=== PATIENT | male | born 1950 | race Caucasian/White ===

== ENCOUNTER 2017-07-03 03:09 | Emergency (ER) | payer MEDICARE ==
[2017-07-03 03:20] VITALS: BP 143/94
[2017-07-03] MEDS ORDERED: HYDROcodone/ACETAMIN 5-325 MG* 1 TAB PO ONE (07:05)
[2017-07-03] MEDS ORDERED: Cyclobenzaprine TAB* 10 MG PO ONE (07:06)
--- NOTE | 2017-07-03 08:25 | RAD ---
HISTORY: Back pain COMPARISONS: None VIEWS: 5 , Frontal, lateral, coned-down lateral sacral, and bilateral oblique views of the lumbar spine. FINDINGS: ALIGNMENT: There is mild dextroscoliotic curvature of the spine. There is straightening of the lumbar lordosis. VERTEBRAL BODIES: The vertebral body heights are normal. The interpedicular distances are normal. There is multilevel anterolateral marginal osteophyte formation. JOINTS: There is diffuse facet osteoarthritic change, most pronounced along the lower lumbar spine INTERVERTEBRAL DISCS: There is diffuse loss of intervertebral disc height. SOFT TISSUE: Unremarkable. OTHER: The pelvis is unremarkable. The lung bases are clear. IMPRESSION: DEGENERATIVE DISC DISEASE AND OSTEOARTHRITIS.
--- NOTE | 2017-07-03 10:04 | ED ---
Devon Leal Thomas, scribed for Shea Quezada MD on 07/03/17 at 0947 . Back Pain - HPI Summary HPI Summary: The pt is a 67 y/o M presenting to the ED c/o sharp left lower back pain that began 9 days ago when he was doing mulch. The pain is described as a tightness, stiffness, and soreness. The pt rates the pain 2/10. The pain is alleviated by movement. The pain is aggravated by nothing. The patient has treated the pain with Alleve TIRE MAKER. Two days ago, the pain worsened and the patient had difficulty standing up and ambulating. The pain now radiates down his LLE below his calf. He saw his PMD who thought that the patient aggravated a tendon in his pelvic bone. He prescribed the patient Naproxen 500mg BID. He reports previous back injuries. Two years ago, he had some sort of imaging on his back. Pt denies bladder or bowel incontinence. He is accompanied by his . PMHx of HTN, HLD, and hypothyroidism. He is on Simvastatin 20mg, Lisinopril 20mg, Synthroid 50mg, and ASA 81. He also has a Hx of kidney stones, although he says his current symptoms does not align with his prior sxs with kidney stones. PSHx of knee repairs and ESWL. FHx of cancer and Parkinsons disease. - History of Current Complaint Chief Complaint: EDBackInjuryPain Stated Complaint: BACK PAIN Time Seen by Provider: 07/03/17 06:28 Hx Obtained From: Patient, Family/Lactation Coordinator - accompanied by his Onset/Duration: Lasting Days - onset of pain 9 days ago, Still Present, Worse Since - worse since two days ago Onset/Duration: Started Days Ago, Atraumatic, Still Present Timing: Constant Back Pain Location: Is Discrete @ - left lower back Severity Currently: Moderate Pain Intensity: 2 Pain Scale Used: 0-10 Numeric Character: Sharp Aggravating Symptom(s): Movement Alleviating Symptom(s): Nothing Associated Signs And Symptoms: Negative: Bladder Incontinence, Bowel Incontinence Related History: Previous Back Injury - Allergies/Home Medications Allergies/Adverse Reactions: Allergies Allergy/AdvReac Type Severity Reaction Status Date / Time No Known Allergies Allergy Verified 02/13/16 08:09 PMH/Surg Hx/FS Hx/Imm Hx Previously Healthy: No Endocrine/Hematology History: Reports: Hx Thyroid Disease Denies: Hx Diabetes Cardiovascular History: Reports: Hx Hypercholesterolemia, Hx Hypertension - ON MEDS Denies: Hx Pacemaker/ICD History: Denies: Hx Renal Disease Sensory History: Denies: Hx Hearing Aid Psychiatric History: Denies: Hx Panic Disorder - Surgical History Surgery Procedure, Year, and Place: ARTHROSCOPIC RIGHT KNEE-REMOVED CYST 1990. KIDNEY STONES REMOVED SEVERAL TIMES. TONSILS CHILD-BROKEN LEG CHILD NO METAL Infectious Disease History: No Infectious Disease History: Denies: Traveled Outside the [place] in Last 30 Days - Family History Known Family History: Positive: Other - [place], parkinson's disease - Social History Lives: With Family Alcohol Use: None Hx Substance Use: No Substance Use Type: Reports: None Smoking Status (MU): Unknown if Ever Smoked Review of Systems Negative: Fever Cardiovascular: Negative Respiratory: Negative Gastrointestinal: Negative Positive: no symptoms reported Positive: Other - Sharp left lower back pain onset 9 days ago Skin: Negative Neurological: Other - NEGATIVE: bladder or bowel incontinence Psychological: Normal All Other Systems Reviewed And Are Negative: Yes Physical Exam Triage Information Reviewed: Yes Vital Signs On Initial Exam: Initial Vitals Temp Pulse Resp BP Pulse Ox 97.2 F 104 20 143/94 98 07/03/17 03:10 07/03/17 03:10 07/03/17 03:10 07/03/17 03:10 07/03/17 03:10 Vital Signs Reviewed: Yes Appearance: Positive: Well-Appearing, Well-Nourished, Pain Distress Skin: Positive: Warm, Skin Color Reflects Adequate Perfusion Head/Face: Positive: Normal Head/Face Inspection Eyes: Positive: Conjunctiva Clear ENT: Positive: Normal ENT inspection Neck: Positive: Supple Respiratory/Lung Sounds: Positive: Clear to Auscultation, Breath Sounds Present , Other - No respiratory distress Cardiovascular: Positive: RRR, Pulses are Symmetrical in both Upper and Lower Extremities, Other - Brisk cap refill. Negative: Murmur Abdomen Description: Positive: Nontender, No Organomegaly, Soft. Negative: CVA Tenderness (R), CVA Tenderness (L), Distended, Guarding, Pulsatile Mass Bowel Sounds: Positive: Present Male Genital Exam: Positive: normal genitalia Musculoskeletal: Positive: Strength/ROM Intact, Other - He is tender in L4, L5 down to the coccyx. Pain is reproducible on the sciatic notch and sacroilium. Neurological: Positive: Sensory/Motor Intact, Alert, Oriented to Person Place, Time, Reflexes Intact, Facial Symmetry, Speech Normal, Other - Able to walk on heels and toes Psychiatric: Positive: Normal Diagnostics - Vital Signs Vital Signs Temp Pulse Resp BP Pulse Ox 07/03/17 08:49 97.9 F 07/03/17 03:10 97.2 F 104 20 143/94 98 - Laboratory Lab Statement: Any lab studies that have been ordered have been reviewed, and results considered in the medical decision making process. - Radiology L-Spine XR Xray Interpretation: No Acute Changes - DDD and OA. ED physician has reviewed this report and agrees. Radiology Interpretation Completed By: Radiologist Re-Evaluation - Re-Evaluation Second Eval Re-Evaluation Time: 08:30 - reports relief of pain. Able to bear weight. Wants to go home. Change: Improved Back Pain Course/Dx - Course Course Of Treatment: High blood pressure noted. Patients medications reviewed this visit. Assessment/Plan: The pt is a 67 y/o M presenting to the ED c/o sharp left lower back pain that began 9 days ago when he was doing mulch. The pain radiates down his LLE below his calf. Patients medication reviewed this visit. Blood pressure noted. In the ED course the patient was given Flexeril and Axson. XR L- Spine shows DDD and OA. ED physician has reviewed this report and agrees. Patient will be discharged home with follow up by PCP. Pt is agreeable with this plan. - Diagnoses Differential Diagnosis/HQI/PQRI: Positive: Arthritis, Herniated Disc, Strain, Sprain Provider Diagnoses: Acute low back pain with left-sided sciatica, Hypertension, poor control Discharge - Discharge Plan Condition: Stable Disposition: HOME Prescriptions: Cyclobenzaprine TAB* [Flexeril 10 MG TAB*] 10 mg PO TID #30 tab HYDROcodone/ACETAMIN 5-325 MG* [Axson 5-325 TAB*] 1 tab PO Q4H PRN #18 tab MDD 6 PRN Reason: Pain Patient Education Materials: Sciatica (ED), Lumbar Radiculopathy (ED) Referrals: Real Villalobos MD [Primary Care Provider] - The documentation as recorded by the Devon freedman Thomas accurately reflects the service I personally performed and the decisions made by , Shea Quezada MD.
== END 2017-07-03 08:49 | disposition home or self-care (01) ==
LOC: ED 03:09
DX: M54.42 Lumbago with sciatica, left side (principal); I10 Essential (primary) hypertension; E07.9 Disorder of thyroid, unspecified; E78.00 Pure hypercholesterolemia, unspecified; M51.36 Other intervertebral disc degeneration, lumbar region; M19.90 Unspecified osteoarthritis, unspecified site
CPT/HCPCS: 72110; 99282; A9270-GY

== ENCOUNTER 2017-07-06 19:21 | Inpatient (IN) | payer MEDICARE ==
--- NOTE | 2017-07-06 21:37 | ED ---
Back Pain - HPI Summary HPI Summary: 67 male presents to ED with complaints of lower left sided back pain that began 2 weeks ago after hurting himself while lifting and doing mulch. Patient states pain hurt worse last Tuesday07/01/17 and seen in ED on Tuesday 07/03. Patient was taking naproxen 500mg BID and additionally given hydrocodone and flexeril when seen on Tuesday. States he has not had any relief and has been crawling around, unable to walk and straighten leg without pain. Comfortable when resting and having leg externally rotated. Worse with weight bearing and walking. States pain starts in left gluteal/low back region and travels down left leg. Described as sharp and shooting at its worst. States "it feels like a rubberband that needs to be stretched but can't". Denies bruising, swelling and obvious deformity. No additional trauma or injury, states when he woke up last Tuesday it just hurt worse when he went to step off bed. Unable to make it to his PCP appointment today due to being unable to move/walk. Denies saddle anesthesia, bladder/bowel incontinence. Does admit to having some weakness of left leg. No abdominal pain, chest pain or trouble breathing. Has HTN, high cholesterol and thyroid disease that he currently takes medication for. Had xrays at last visit tuesday that were unremarkable for acute injury. - History of Current Complaint Chief Complaint: EDBackInjuryPain Stated Complaint: BACK INJURY Time Seen by Provider: 07/06/17 19:36 Hx Obtained From: Patient Onset/Duration: Sudden Onset, Lasting Weeks, Still Present, Worse Since Onset/Duration: Started Weeks Ago, Traumatic Timing: Constant - with weight bearing or straightening of left LE Back Pain Location: Is Discrete @ - left lumbar back /glute down left LE Severity Initially: Moderate Severity Currently: Severe Pain Intensity: 8 Pain Scale Used: 0-10 Numeric Aggravating Symptom(s): Movement, Walking Alleviating Symptom(s): Rest, Position Associated Signs And Symptoms: Positive: Weakness, Pain with Weight Bearing. Negative: Swelling, Redness, Bruising, Numbness, Tingling, Abdominal Pain, Bladder Incontinence, Bowel Incontinence - Risk Factors AAA Risk Factors: Hypertension, Atherosclerosis TAD Risk Factors: Hypertension Cauda Equina Risk Factors: Lower Extremity Weakness - left side Epidural Abscess Risk Factors: Negative - Allergies/Home Medications Allergies/Adverse Reactions: Allergies Allergy/AdvReac Type Severity Reaction Status Date / Time No Known Allergies Allergy Verified 07/06/17 21:33 Home Medications: Home Medications Aspirin [Aspirin 81 MG TAB] 81 mg PO QPM 07/07/17 [History Confirmed 07/07/17] Levothyroxine TAB* [Synthroid TAB*] 50 mcg PO QPM 07/07/17 [History Confirmed ] Lisinopril TAB* [Prinivil TAB*] 20 mg PO DAILY 07/07/17 [History Confirmed 07/07] Simvastatin [Zocor 40 MG (NF)] 20 mg PO QPM 07/07/17 [History Confirmed 07/07/17 ] PMH/Surg Hx/FS Hx/Imm Hx Endocrine/Hematology History: Reports: Hx Thyroid Disease Denies: Hx Diabetes Cardiovascular History: Reports: Hx Hypercholesterolemia, Hx Hypertension - ON MEDS Denies: Hx Pacemaker/ICD History: Denies: Hx Renal Disease Sensory History: Denies: Hx Hearing Aid Psychiatric History: Denies: Hx Panic Disorder - Surgical History Surgery Procedure, Year, and Place: ARTHROSCOPIC RIGHT KNEE-REMOVED CYST 1990. KIDNEY STONES REMOVED SEVERAL TIMES. TONSILS CHILD-BROKEN LEG CHILD NO METAL - Immunization History Immunizations Up to Date: Yes Infectious Disease History: No Infectious Disease History: Denies: Traveled Outside the [place] in Last 30 Days - Family History Known Family History: Positive: Other - [place], parkinson's disease - Social History Alcohol Use: None Hx Substance Use: No Substance Use Type: Reports: None Smoking Status (MU): Unknown if Ever Smoked Review of Systems Constitutional: Negative Cardiovascular: Negative Respiratory: Negative Positive: Arthralgia - lumbar back , Myalgia, Decreased ROM - left LE Skin: Negative Positive: Weakness - left LE All Other Systems Reviewed And Are Negative: Yes Physical Exam Triage Information Reviewed: Yes Vital Signs On Initial Exam: Initial Vitals Temp Pulse Resp BP Pulse Ox 98 F 75 20 156/85 98 07/06/17 20:00 07/06/17 20:00 07/06/17 20:00 07/06/17 20:00 07/06/17 20:00 BP noted, patient in pain and diagnosed with HTN. recommend follow up with PCP for recheck. Vital Signs Reviewed: Yes Appearance: Positive: Well-Appearing, No Pain Distress - when sitting comfortable on stretcher, Well-Nourished Skin: Positive: Warm, Skin Color Reflects Adequate Perfusion, Dry. Negative: Cold, Numb, Cyanosis @, Pale, Erythema @ Head/Face: Positive: Normal Head/Face Inspection Eyes: Positive: Conjunctiva Clear ENT: Positive: Hearing grossly normal Neck: Positive: Supple, Nontender Respiratory/Lung Sounds: Positive: Clear to Auscultation, Breath Sounds Present. Negative: Rales, Rhonchi, Wheezes Cardiovascular: Positive: Normal, RRR, Pulses are Symmetrical in both Upper and Lower Extremities - 2+ pedal b/l. Negative: Murmur, Rub Abdomen Description: Positive: Nontender, Soft Bowel Sounds: Positive: Present Musculoskeletal: Positive: Limited @ - left LE due to pain with extension and weight bearing, Pain @ - left lumbar paraspinal muscle/gluteal region down left leg with movement and weight bearing. + straight leg raise, Other - no crepitus step off or obvious deformity. unable to straighten left LE without excrutiating discomfort. Negative: Edema Left, Edema Right Neurological: Positive: Normal, Sensory/Motor Intact - normal, Alert, Oriented to Person Place, Time, Reflexes Intact, NV Bundle Intact Distally, Unable to Assess Gait - due to pain - [place] Coma Scale Coma Scale Total: 15 Diagnostics - Vital Signs Vital Signs Temp Pulse Resp BP Pulse Ox 07/06/17 20:00 98 F 75 20 156/85 98 - Laboratory Lab Statement: Any lab studies that have been ordered have been reviewed, and results considered in the medical decision making process. Re-Evaluation - Re-Evaluation First Eval Re-Evaluation Time: 00:00 Change: Improved - had some relief after medication administered. was still unable to ambulate. discussed option of admission. Back Pain Course/Dx - Course Course Of Treatment: given toradol, oxycodone and dexamethasone to attempt relief. did not repeat any imaging. had some relief however was unable to ambulate and move without excrutiating pain. attempted to use crutches however was still unable. Spoke with Dr Chaudhary about observation for pain control and possible consult. Patient preferred admission at this time due to being unable to function at home and take care of himself. Unable to get to outpatien doctor' s appointments. Dr Chaudhary consulted and agreed to admit at this time. Told oxycodone and steroid were sent to pharmacy. recommended to follow up with neurosurgery for further evaluation and imaging. No concern for emergent etiology such as abscess or cauda equina syndrome at this time. Appears to be suffering from a sciatica +/- muscular/neuro injury. - Diagnoses Differential Diagnosis/HQI/PQRI: Positive: Herniated Disc, Strain, Sprain, Other - sciatica Provider Diagnoses: Back pain with left-sided sciatica - Provider Notifications Discussed Care Of Patient With: Dr Almanza, Dr Chaudhary Time Discussed With Above Provider: 00:00 Instructed by Provider To: Admit As Observation Discharge - Discharge Plan Condition: Stable Disposition: ADMITTED TO [facility] Prescriptions: oxyCODONE TAB* [Roxycodone TAB 5 mg*] 5 mg PO Q6H PRN #21 tab MDD 3 PRN Reason: Pain predniSONE TAB* [Deltasone TAB*] 40 mg PO DAILY #10 tab Patient Education Materials: Sciatica (ED), Lumbar Radiculopathy (ED) Referrals: Real Villalobos MD [Primary Care Provider] - Huy Moore MD [Medical Doctor] -
[2017-07-06] MEDS ORDERED: Ketorolac INJ* 30 MG/ML 1 ML VIAL IM ONE (22:31)
[2017-07-06] MEDS ORDERED: Dexamethasone IV* 4 MG/ML 1 ML (4 MG) IM ONE (22:32)
[2017-07-06] MEDS ORDERED: oxyCODONE TAB* 5 MG TAB PO ONE (22:44)
[2017-07-06] MEDS ORDERED: Dexamethasone IV* 4 MG/ML 1 ML (4 MG) IV SLOW PU ONE (23:07)
[2017-07-06] MEDS ORDERED: Ketorolac INJ* 30 MG/ML 1 ML VIAL IV PUSH ONE (23:07)
[2017-07-07] MEDS ORDERED: Enoxaparin(*) 40 MG/0.4 ML SYR SUBCUT SCH (04:00)
[2017-07-07] MEDS ORDERED: Ondansetron INJ* 2 MG/ML VIAL IV PRN (04:00)
[2017-07-07] MEDS: HYDROcodone/ACETAMIN 5-325 MG* 1 TAB PO PRN ×4 (05:05→22:09)
--- NOTE | 2017-07-07 05:21 | HP ---
ADMISSION HISTORY AND PHYSICAL: DATE OF ADMISSION: 07/07/17 PRIMARY CARE PROVIDER: Dr. Villalobos. HEALTHCARE PROXY: His . CODE STATUS: Full. SOURCE OF INFORMATION: History obtained from interview with the patient and his . RELIABILITY: Good. CHIEF COMPLAINT: Back and leg pain. HISTORY OF PRESENT ILLNESS: This is a 67-year-old man who had been in his usual state of health until approximately 2 weeks prior to presentation noticed pain in his lower back while moving mulch from his truck. He was seen by Dr. Jimenez, Dr. Villalobos' partner and was prescribed naproxen with some relief; however , awoke approximately 1 week ago with increasing pain and tightness in his left leg. He was seen in the emergency room on the and was prescribed hydrocodone as well as Flexeril in addition to the continued naproxen. He has had minimal relief and as noted he has been unable to leave the house and making to the doctor's appointment secondary to increased pain in his leg. He notes that the pain feels like a tightness like there as a rubber band in his leg extending from his left hamstring down to his foot with minimal pain in his left lower back that is largely improved at the time of the injury. He feels the pain is relieved if he keeps his left hip externally rotated with his leg, flexed at the knee. He feels the pain is worse with a straighten leg, trying to lay flat or with any application of pressure-like standing up. Because of the continued pain and the inability to use this leg, he proceeded to the emergency room today where he was evaluated and the hospitalist service was consulted for admission. PAST MEDICAL HISTORY: Hypertension, hypothyroidism, hyperlipidemia, cyst removed from his left knee, recurrent nephrolithiasis, and tonsillectomy. HOME MEDICATIONS: 1. Aspirin 81 mg daily. 2. Levothyroxine 50 mcg daily. 3. Lisinopril 20 mg daily. 4. Simvastatin 20 mg daily. ALLERGIES: No known drug allergies. FAMILY HISTORY: Positive for Parkinson's disease. SOCIAL HISTORY: No alcohol, illicits, or tobacco. REVIEW OF SYSTEMS: Negative for asymmetric weakness, paresthesias, urinary incontinence or retention, or stool incontinence. PHYSICAL EXAMINATION GENERAL: Sitting up in bed, interactive, pleasant, in no apparent distress. VITAL SIGNS: In the emergency room, blood pressure 156/85, heart rate 75, respiratory rate 20, T-max 98 Fahrenheit, 98% on room air. HEENT: Oropharynx is clear. He has moist mucous membranes. Sclerae are anicteric. LUNGS: Clear to auscultation. HEART: He has regular rate and rhythm. No murmurs, rubs, or gallops. ABDOMEN: Soft, nontender, and nondistended. EXTREMITIES: Warm and well perfused. He is sitting straight up with his left leg externally rotated at the hip and flexed to me. He experiences pain with extension of his leg. There is no tenderness to palpation in his leg, nowhere along the spine or paraspinal muscles. Gait not assessed. NEUROLOGIC: He is alert and oriented x3. His cranial nerves are intact. Sensation is intact throughout. He has downgoing Babinski's. Reflex is symmetric. ASSESSMENT AND PLAN: This is a 67-year-old man experienced lower back pain approximately 2 weeks prior while lifting mulch, now presenting with increasing pain in his leg, limiting his ability to function at home, ambulate or leave the home will get to the doctor. 1. Lower back/left leg pain. On my examination, this seems less like lower back pain and more muscular, localizing to his hamstring potentially while improves with flexion. I think he needs additional imaging and/or evaluation by orthopedics to confirm or deny this muscular injury. I placed a consultation for orthopedics who can direct us towards additional imaging. For now, we will continue with current regimen of pain medication as was used at home. Physical Therapy consultation is also placed. 2. Hypertension. Continue home medications. 3. Hypothyroidism. Continue home medication. 4. DVT prophylaxis. Noel. [id number]/[facility] #: [id number] [facility]ENTERDale
[2017-07-07] MEDS: Enoxaparin(*) 40 MG/0.4 ML SYR SUBCUT SCH (05:43)
[2017-07-07] MEDS: Levothyroxine TAB* 50 MCG TAB PO SCH (05:43)
[2017-07-07] MEDS: Lisinopril TAB* 10 MG PO SCH (11:02)
[2017-07-07] MEDS: Cyclobenzaprine TAB* 10 MG PO SCH ×3 (11:02→20:28)
[2017-07-07] MEDS ORDERED: Magnesium Hydroxide LIQ* 30 ML UDC PO ONE (11:05)
[2017-07-07] MEDS ORDERED: Morphine INJ* 2 MG/ML 1 ML SYRINGE (TWO MG - NEW SYRINGE VERSION) IV ONE (11:06)
--- NOTE | 2017-07-07 11:12 | PN ---
Subjective Date of Service: 07/07/17 Interval History: Patient seen and examined at bedside. Patient states he was able to take a few steps with the walker with physical therapy. The patient states it is difficult for him to lie flat. He has not had a BM since Tuesday. Family History: Unchanged from Admission Social History: Unchanged from Admission Past Medical History: Unchanged from Admission Objective Active Medications: Hydrocodone Bitart/Acetaminophen (Steedman 5-325 Tab*) 1 tab PO Q4H PRN Aspirin (Aspirin Ec Low Dose*) 81 mg PO QPM MARILU Atorvastatin Calcium (Lipitor*) 10 mg PO QPM MARILU Cyclobenzaprine HCl (Flexeril Tab*) 10 mg PO TID MARILU Docusate Sodium (Colace Cap*) 100 mg PO BID MARILU Enoxaparin Sodium (Lovenox(*)) 40 mg SUBCUT 0600 MARILU Ibuprofen (Motrin Tab*) 600 mg PO Q8H MARILU Levothyroxine Sodium (Synthroid Tab*) 50 mcg PO 0600 MARILU Lisinopril (Prinivil Tab*) 20 mg PO DAILY MARILU Magnesium Citrate (Citrate Of Magnesia*) 150 ml PO ONCE ONE Magnesium Hydroxide (Milk Of Magnesia Liq*) 30 ml PO ONCE ONE Ondansetron HCl (Zofran Inj*) 4 mg IV Q4H PRN Polyethylene Glycol/Electrolytes (Miralax*) 17 gm PO DAILY MARILU Senna (Senokot Tab*) 2 tab PO BEDTIME MARILU Vital Signs 07/07/17 07/07/17 07/07/17 07:40 11:02 11:03 Temperature 97.5 F Pulse Rate 108 Respiratory 18 16 18 Rate Blood Pressure 136/93 (mmHg) O2 Sat by Pulse 95 Oximetry Oxygen Devices in Use Now: None Appearance: sitting up in bed, NAD Eyes: No Scleral Icterus - in Ears/Nose/Mouth/Throat: NL Teeth, Lips, Gums Neck: NL Appearance and Movements; NL JVP Respiratory: Symmetrical Chest Expansion and Respiratory Effort, Clear to Auscultation Cardiovascular: NL Sounds; No Murmurs; No JVD Abdominal: NL Sounds; No Tenderness; No Distention Extremities: No Edema Neurological: Alert and Oriented x 3, - - equal strength. limited mobility of L leg d/t pain. Lines/Tubes/Other Access: Clean, Dry and Intact Peripheral IV Nutrition: Taking PO's Assess/Plan/Problems-Billing Patient is a 67 y/o M who presented to the ER w/ worsening R leg pain and inability to ambulate. - Patient Problems (1) Pain of left lower extremity due to injury Comment: Appreciate Ortho input. Plan for MRI of thigh to eval pulled hamstring. Start standing Ibuprofen and continue PRN Steedman. Continue PT. (2) Constipation Comment: Will start regular bowel regimen of miralax, senna, and colace. Giv eone time MOM and Mg Citrate. (3) HTN (hypertension) Comment: Controlled. Continue Lisinopril. (4) Hypothyroidism Comment: Continue Synthroid. (5) DVT prophylaxis Current Visit: Yes Comment: Lovenox (6) Full code status Status and Disposition: OBV for leg pain. Plan to discharge home when able to ambulate safely.
[2017-07-07] MEDS ORDERED: Magnesium CITRATE* 300 ML BTL PO ONE (11:30)
[2017-07-07] MEDS: Ibuprofen TAB* 600 MG PO SCH ×2 (12:01→20:27)
[2017-07-07] MEDS: Docusate CAP* 100 MG PO SCH ×2 (12:01→20:28)
[2017-07-07] MEDS: Polyethylene Glycol 3350* 17 GM PACKET PO SCH (12:07)
--- NOTE | 2017-07-07 17:30 | CONS ---
ORTHOPEDIC SURGERY CONSULTATION: DATE OF CONSULT: 07/07/17 REQUESTING SERVICE: Hospitalist. REQUESTING PROVIDER: Hector Chaudhary MD CHIEF COMPLAINT: Left lower extremity pain. HISTORY OF PRESENT ILLNESS: Lyle is a very pleasant 67-year-old man, who was admitted to the hospital for left thigh pain overnight. He was in his usual state of health and then about 2 weeks ago, he was moving mulch from his truck when he injured what he thought was his left hamstring. He rested it for a few days and saw his PCP, who prescribed naproxen. The pain gradually improved over the first week, so he started to resume his normal activities again. He was playing golf and reinjured the exact spot in the posterior thigh; this was a few days ago. He has been having trouble walking because of pain in the posterior thigh since that time. He came in to the emergency room last night and given his inability to ambulate safely, he was admitted to the hospital. He reports that the pain is daily, marked sharp and pulling. It is worse with attempted extension of the knee and ambulation and it is improved with rest. There is some associated swelling, but no ecchymosis. PAST MEDICAL HISTORY: Hypertension, hypothyroidism, hyperlipidemia, tonsillectomy. HOME MEDICATIONS: 1. Aspirin 81. 2. Levothyroxine 50. 3. Lisinopril 20. 4. Simvastatin 20. ALLERGIES: No known drug allergies. FAMILY HISTORY: Positive for Parkinson's. SOCIAL HISTORY: No alcohol, illicit's, or tobacco. REVIEW OF SYSTEMS: Negative for fever, recent visual changes, difficulty swallowing, chest pain, shortness of breath, abdominal pain, hematuria, easy bruising, diffuse weakness and lack of coordination, and diffuse rash. PHYSICAL EXAM: Constitutional: His general appearance is healthy and nonseptic , in no acute distress. Cardiovascular: Pulse examination demonstrates positive pedal pulses, brisk capillary refill. There are no varicosities. Lymphatic: No lymphadenopathy appreciated. Skin: Bilateral upper and lower extremity examination reveals no ulcerative lesions. Psychiatric/Neurological: Appropriate affect. Alert and oriented to person, place, and time. There is no significant abnormality in coordination appreciated. Normal reflex of deep tendon reflex in the affected extremity. Musculoskeletal: Gait analysis unable to be performed due to pain in the left lower extremity. He has no tenderness to palpation in his lumbar spine or in the left gluteal region. He does have tenderness at the ischial tuberosity and along the course of the hamstring muscle down to the insertion of the semimembranosus. There is no significant swelling or hematoma palpated. No ecchymosis, but again he is quite tender here. He has full strength with knee extension and he is able to flex the knee but is very painful to him. Passive knee extension is also painful to him. He has full 5/5 strength with ankle dorsiflexion, plantar flexion, inversion, eversion, FHL extension and flexion. Sensation is intact to light touch throughout the left lower extremity and he has strong palpable pulses. DIAGNOSTIC STUDIES: Imaging: None. ASSESSMENT AND PLAN: A 67-year-old man with left hamstring strain versus tear versus rupture. He, his , and I had a long discussion about the diagnosis and treatment plan. We will get an MRI to confirm the injury and extent of damage. The plan for the next few days will be to rest, ice, and use antiinflammatories to decrease the inflammation and help with his pain. He will work with physical therapy on gait training so that he is safe and stable to go home. Next week, I will have him follow up in the office and as long as pain has been improving, we will get him started with physical therapy for range of motion and then eventually strengthening and reconditioning of the hamstring. We will follow up on the MRI and if anything else is shown on that, this plan could very well change. All of his and his 's questions were answered. TIME SPENT: I spent 50 minutes with Mr. Alexander and his over half of which was spent in counseling and coordination of care. [id number]/[facility] #: [id number] SANDY
[2017-07-07] MEDS: Atorvastatin* 10 MG TAB PO SCH (17:57)
[2017-07-07] MEDS: Aspirin EC Low Dose* 81 MG TAB.EC PO SCH (17:57)
[2017-07-07] MEDS: Senna TAB PO SCH (20:29)
[2017-07-08] MEDS ORDERED: HYDROmorphone INJ* 1 MG/ML CARPUJECT SYRINGE IV ONE (01:17)
[2017-07-08] MEDS: Ibuprofen TAB* 600 MG PO SCH ×3 (04:32→20:33)
[2017-07-08] MEDS: HYDROcodone/ACETAMIN 5-325 MG* 1 TAB PO PRN ×2 (04:39→23:35)
[2017-07-08] MEDS: Enoxaparin(*) 40 MG/0.4 ML SYR SUBCUT SCH (05:37)
[2017-07-08] MEDS: Levothyroxine TAB* 50 MCG TAB PO SCH (05:38)
[2017-07-08 06:43] LABS: Hematocrit 43 % (42-52); Hemoglobin 14.6 g/dl (14.0-18.0); Mean Platelet Volume 9 um3 (7.4-10.4)
--- NOTE | 2017-07-08 07:48 | RAD ---
INDICATION: Thigh pain, inability to ambulate, evaluate for hamstring rupture. COMPARISON: There are no prior studies available for comparison. TECHNIQUE: Axial, sagittal and coronal T1 and T2-weighted images of the left thigh were obtained. FINDINGS: The bones are in normal alignment and signal intensity. No fracture is seen. There is mild edema at the muscular tendinous junction of the semimembranosus tendon in the upper to mid thigh suggestive of a tendon strain. No fluid collection or hematoma is seen. No mass or cyst is seen. There is fluid around both testicles consistent with bilateral hydroceles. IMPRESSION: 1. MILD STRAIN OF THE SEMIMEMBRANOSUS TENDON AT THE MUSCULOTENDINOUS JUNCTION IN THE UPPER TO MID THIGH. 2. BILATERAL HYDROCELES.
[2017-07-08] MEDS: Docusate CAP* 100 MG PO SCH ×2 (08:23→20:36)
[2017-07-08] MEDS: Cyclobenzaprine TAB* 10 MG PO SCH ×3 (08:24→20:36)
[2017-07-08] MEDS: Lisinopril TAB* 10 MG PO SCH (08:24)
[2017-07-08] MEDS: Polyethylene Glycol 3350* 17 GM PACKET PO SCH (08:51)
[2017-07-08] MEDS ORDERED: HYDROcodone/ACETAMIN 5-325 MG* 1 TAB PO PRN (12:00)
[2017-07-08 12:47] LABS: EGFR African American 97.6 (>60); EGFR Non-African American 75.9 (>60)
--- NOTE | 2017-07-08 14:25 | PN ---
Subjective Date of Service: 07/08/17 Interval History: Patient seen and examined at bedside. Patient still in too much pain to bear any weight on foot and ambulate with crutches. He did not premedicate with Ashley prior to participating with therapy. Family History: Unchanged from Admission Social History: Unchanged from Admission Past Medical History: Unchanged from Admission Objective Active Medications: Hydrocodone Bitart/Acetaminophen (Ashley 5-325 Tab*) 1 tab PO Q4H PRN Hydrocodone Bitart/Acetaminophen (Ashley 5-325 Tab*) 2 tab PO Q4H PRN Aspirin (Aspirin Ec Low Dose*) 81 mg PO QPM MARILU Atorvastatin Calcium (Lipitor*) 10 mg PO QPM MARILU Cyclobenzaprine HCl (Flexeril Tab*) 10 mg PO TID MARILU Docusate Sodium (Colace Cap*) 100 mg PO BID MARILU Enoxaparin Sodium (Lovenox(*)) 40 mg SUBCUT 0600 MARILU Ibuprofen (Motrin Tab*) 600 mg PO Q8H MARILU Levothyroxine Sodium (Synthroid Tab*) 50 mcg PO 0600 MARILU Lisinopril (Prinivil Tab*) 20 mg PO DAILY MARILU Ondansetron HCl (Zofran Inj*) 4 mg IV Q4H PRN Polyethylene Glycol/Electrolytes (Miralax*) 17 gm PO DAILY MARILU Senna (Senokot Tab*) 2 tab PO BEDTIME [facility] 07/08/17 07/08/17 07/08/17 06:39 07:18 08:24 Temperature 97.3 F Pulse Rate 72 Respiratory 18 16 18 Rate Blood Pressure 132/89 (mmHg) O2 Sat by Pulse 95 Oximetry Oxygen Devices in Use Now: None Appearance: sitting up in bed, NAD Eyes: No Scleral Icterus, PERRLA Ears/Nose/Mouth/Throat: NL Teeth, Lips, Gums Neck: NL Appearance and Movements; NL JVP Respiratory: Symmetrical Chest Expansion and Respiratory Effort, Clear to Auscultation Cardiovascular: NL Sounds; No Murmurs; No JVD, RRR Abdominal: NL Sounds; No Tenderness; No Distention Extremities: No Edema Skin: No Rash or Ulcers Neurological: Alert and Oriented x 3 Lines/Tubes/Other Access: Clean, Dry and Intact Peripheral IV Nutrition: Taking PO's Result Diagrams: 07/08/17 06:13 07/08/17 06:13 Assess/Plan/Problems-Billing Patient is a 67 y/o M who presented to the ER w/ worsening R leg pain and inability to ambulate. - Patient Problems (1) Pain of left lower extremity due to injury Comment: Appreciate Ortho input. MRI shows mild tendon strain. Continue aggressive pain control with Flexeril, Ibuprofen, and Ashley. PT as able. (2) Constipation Comment: Continue regular bowel regimen of miralax, senna, and colace. (3) HTN (hypertension) Comment: Controlled. Continue Lisinopril. (4) Hypothyroidism Comment: Continue Synthroid. (5) DVT prophylaxis Current Visit: Yes Comment: Lovenox (6) Full code status Status and Disposition: OBV for leg pain. Plan to discharge home when able to ambulate safely.
[2017-07-08] MEDS: Atorvastatin* 10 MG TAB PO SCH (18:10)
[2017-07-08] MEDS: Aspirin EC Low Dose* 81 MG TAB.EC PO SCH (18:10)
[2017-07-08] MEDS: Senna TAB PO SCH (20:38)
[2017-07-08] MEDS ORDERED: CMCS Melatonin (NF) 3 MG TAB PO PRN (23:28)
[2017-07-09] MEDS: Enoxaparin(*) 40 MG/0.4 ML SYR SUBCUT SCH (05:52)
[2017-07-09] MEDS: Ibuprofen TAB* 600 MG PO SCH ×2 (05:53→11:52)
[2017-07-09] MEDS: Levothyroxine TAB* 50 MCG TAB PO SCH (05:53)
[2017-07-09] MEDS: HYDROcodone/ACETAMIN 5-325 MG* 1 TAB PO PRN ×2 (05:59→10:53)
[2017-07-09 09:26] VITALS: BP 134/81
[2017-07-09] MEDS: Polyethylene Glycol 3350* 17 GM PACKET PO SCH (10:38)
[2017-07-09] MEDS: Lisinopril TAB* 10 MG PO SCH (10:38)
[2017-07-09] MEDS: Docusate CAP* 100 MG PO SCH (10:38)
[2017-07-09] MEDS: Cyclobenzaprine TAB* 10 MG PO SCH (10:38)
--- NOTE | 2017-07-10 15:40 | DS ---
CC: Dr. Villalobos; Dr. Andrade Griffith DISCHARGE SUMMARY: DATE OF ADMISSION: 07/07/17 DATE OF DISCHARGE: 07/09/17 PRIMARY CARE PROVIDER: Dr. Villalobos. CONSULTING ORTHOPEDIST: Dr. Andrade Griffith. DISCHARGE DIAGNOSIS: Left semimembranosus tendon strain. SECONDARY DIAGNOSES: 1. Hypertension. 2. Hypothyroidism. 3. Hyperlipidemia. 4. Recurrent nephrolithiasis. 5. Status post tonsillectomy. MEDICATION LIST: 1. Levothyroxine 50 mcg p.o. daily. 2. Aspirin 81 mg p.o. daily. 3. Lisinopril 20 mg p.o. daily. 4. Simvastatin 20 mg p.o. daily. 5. Cyclobenzaprine 10 mg p.o. t.i.d. 6. Senna 2 tablets p.o. bedtime. 7. MiraLAX 17 g p.o. daily. 8. Omeprazole 20 mg p.o. daily at 6 a.m. 9. Ibuprofen 600 mg p.o. q. 8 hours. 10. Hydrocodone/acetaminophen 5/325 mg 1 to 2 tablets p.o. q.6 hours as needed for pain, MDD 8 tabl ets, dispensed 30, no refills. HOSPITAL COURSE: Mr. Alexander is a 67-year-old male with past medical history stated above that p resented to the emergency room with complaints of back and left leg pain. The symptoms had started 2 weeks prior to admission while he was moving mulch from his truck. He was seen by his primary car e provider, prescribed naproxen with no improvement. Despite the pain, the patient also played a ro und of golf and this exacerbated his symptoms. He presented to the emergency room with complaints o f pain in the posterior aspect of his left leg. For more details about his presentation, I refer yo u to his history and physical. The patient was admitted to the medical floor for further evaluation and pain control. He was seen in consultation by orthopedist (Dr. Griffith) and his impression was the patient likely had a left hamstring strain versus tear versus rupture. His recommendation was for an MRI to confir m the injury and extent of damage. He recommended rest, ice, and antiinflammatories to decrease inf lammation and help with his pain. MRI showed mild strain of the semimembranosus [facility] [place] in the upper to mid thigh and also incidental finding of bilateral hydroceles. The patient had improvement of his symptoms and he is able to ambulate with a walker at this point. Dr. Griffith recommended Physical Therapy for gait training and he will follow up in the office and as long as the pain continues to improve, he will start Physical Therapy for range of motion, stren gthening, and reconditioning of the hamstring. The patient was seen by bilingual patient support caseworker and received offer for home services that they accepted. He is medically stable to be discharged home today to follow up with Dr. Villalobos and Dr. Griffith as outpatient. DIET: Regular diet. ACTIVITY: As tolerated. DISPOSITION: To home. STATUS WHILE IN THE HOSPITAL: Inpatient. Please keep in mind this is a summarized version of this patient's hospital stay. If you need more i nformation, please feel free to call me at [phone] or please obtain the full medical records. TIME SPENT: Approximately 45 minutes was spent to complete this discharge. [id number]/[facility] #: [id number]
== END 2017-07-09 13:50 | disposition home health service (06) | DRG 538 ==
LOC: ED 19:21 → MED 07-07 04:00 → OBSVTOIN 07-08 17:09
PROVIDERS: ADMIT Internal Medicine; ATTEND Internal Medicine
DX: S76.812A Strain of other specified muscles, fascia and tendons at thigh level, left thigh, initial encounter (principal); I10 Essential (primary) hypertension; E03.9 Hypothyroidism, unspecified; E78.5 Hyperlipidemia, unspecified; R40.2412 Glasgow coma scale score 13-15, at arrival to emergency department; K59.00 Constipation, unspecified; N43.3 Hydrocele, unspecified; N20.0 Calculus of kidney; Y92.9 Unspecified place or not applicable; X50.0XXA Overexertion from strenuous movement or load, initial encounter; Z87.442 Personal history of urinary calculi; Z82.0 Family history of epilepsy and other diseases of the nervous system; Z80.9 Family history of malignant neoplasm, unspecified; Z79.82 Long term (current) use of aspirin
CPT/HCPCS: 36415; 82565; 84520; 85014; 85018; 85049; A9270-GY; G0378; J1100; J1170; J1650; J1885; J2270

== ENCOUNTER 2018-02-24 13:12 | Emergency (ER) | payer MEDICARE ==
[2018-02-24] MEDS ORDERED: NS 0.9% 1000 ML* 1,000 ML IV ONE (13:32)
[2018-02-24 13:48] LABS: ABS Basophils 0.1 10^3/ul (0-0.2); ABS Eosinophils 0.1 10^3/ul (0-0.6); ABS Lymphocytes 1.8 10^3/ul (1.0-4.8); ABS Monocytes 0.8 10^3/ul (0-0.8); ABS Neutrophils 8.1 10^3/ul (1.5-7.7); ABS Nucleated RBC 0 10^3/ul; Eosinophil % 0.5 % (0-6); Hematocrit 49 % (42-52); Hemoglobin 16.7 g/dl (14.0-18.0); Lymphocyte % 16.6 % (25-47); Mean Corpuscular HGB Conc 34 g/dl (31-36); Mean Corpuscular Hemoglobin 31 pg (27-31); Mean Corpuscular Volume 91 fL (80-94); Mean Platelet Volume 7.9 um3 (7.4-10.4); Nucleated Red Blood Cells % 0; Platelet Count 237 10^3/ul (150-450); Red Blood Count 5.34 10^6/ul (4.0-5.4); Red Cell Distribution Width 14 % (10.5-15); White Blood Count 10.8 10^3/ul (3.5-10.8)
[2018-02-24 14:15] LABS: EGFR Non-African American 79.6 (>60)
[2018-02-24] MEDS ORDERED: Iohexol 300* (CONTRAST) 10 ML SDV IV ONE (14:29)
[2018-02-24] MEDS ORDERED: Ondansetron ODT TAB* 4 MG PO ONE (14:41)
[2018-02-24] MEDS ORDERED: Ondansetron ODT TAB* 4 MG ONE (14:42)
[2018-02-24 16:07] LABS: Urine Appearance Clear; Urine Blood Negative (Negative); Urine Color Yellow; Urine Ketones 1+ (Negative); Urine Protein Negative (Negative); Urine Specific Gravity 1.015 (1.010-1.030); Urine Urobilinogen Negative (Negative)
--- NOTE | 2018-02-24 16:33 | RAD ---
INDICATION: Abdominal pain. Assess for appendicitis. COMPARISON: May 02, 2010 CT TECHNIQUE: Multidetector CT images were obtained from the lung bases to the ischial tuberosities with 105 mL Omnipaque 300 IV and oral contrast. Multiplanar reformation. REPORT: Unremarkable visualized inferior thorax. Unremarkable liver, gallbladder, pancreas, spleen. No CT abnormality of the upper GI or small bowel. Normal appendix visualized posterior and inferior to the cecum. Negative for periappendiceal inflammatory change. Mild diverticulosis of the sigmoid colon without findings of diverticulitis. Negative for ascites, free air, or significant hernias. Normal adrenal glands. Few small renal cortical cysts. No suspicious focal renal lesions or hydronephrosis. Symmetric nephrograms and pyelograms. Unremarkable nondilated ureters and urinary bladder. Symmetric seminal vesicles. Coarse calcification at the prostate. Negative for lymphadenopathy. Normal diameter abdominal aorta and iliac arteries with mild atherosclerotic plaque. Physiologic distention of the IVC. Small osseous hemangiomas at the lumbar sacral spine. Lumbar sacral spine degenerative spondylosis and facet joint osteoarthritis with progression compared with the 2010 exam.. Negative for suspicious focal osseous lesions. IMPRESSION: 1. Normal appendix documented. 2. Mild diverticulosis of the sigmoid colon without findings of diverticulitis. 3. Negative for obstructive uropathy.
[2018-02-24] MEDS ORDERED: Ketorolac INJ* 30 MG/ML 1 ML VIAL IV PUSH ONE (17:19)
--- NOTE | 2018-02-24 17:23 | ED ---
Roxy Leal Rebecca, scribed for Oniel Giraldo MD on 02/24/18 at 1350 . Abdominal Pain/Male - HPI Summary HPI Summary: Pt is a 67 y/o M who presents to ED c/o RLQ abdominal pain. Sx began last night at 1700 and is currently moderate, ranked 7/10. Oxycodone was taken at 110 today. Pain does not radiate and sx are aggravated and alleviated by nothing. Additionally c/o nausea. Denies vomiting, fever, chills. Was seen by Dr. Busch this morning because he believed the pain was similar to prior instances of kidney stones. At Dr. Busch's office, an US of the kidneys was done which showed no hydronephrosis or kidney stones. He was referred to [facility] to r/o pankaj. - History of Current Complaint Chief Complaint: EDAbdPain Stated Complaint: SENT BY DR AMARO Time Seen by Provider: 02/24/18 13:32 Hx Obtained From: Patient Onset/Duration: Lasting Hours, Still Present Severity Currently: Moderate Pain Intensity: 7 Pain Scale Used: 0-10 Numeric Location: Discrete At: RLQ Radiates: No Aggravating Factor(s): Nothing Alleviating Factor(s): Nothing Associated Signs And Symptoms: Positive: Nausea. Negative: Fever, Vomiting - Allergies/Home Medications Allergies/Adverse Reactions: Allergies Allergy/AdvReac Type Severity Reaction Status Date / Time No Known Allergies Allergy Verified 07/06/17 21:33 Home Medications: Home Medications Aspirin EC TAB* [Ecotrin EC Low Dose 81 MG*] 81 mg PO DAILY 02/24/18 [History Confirmed 02/24/18] Fluticasone NASAL SPRAY 50MCG* [Flonase NASAL SPRAY 50MCG*] 2 spray BOTH NARES DAILY 02/24/18 [History Confirmed 02/24/18] Ibuprofen TAB* [Motrin TAB* 600 MG] 600 mg PO Q8H PRN 02/24/18 [History Confirmed 02/24/18] Levothyroxine TAB* [Synthroid TAB*] 50 mcg PO QAM 02/24/18 [History Confirmed ] PMH/Surg Hx/FS Hx/Imm Hx Endocrine/Hematology History: Reports: Hx Thyroid Disease Denies: Hx Diabetes Cardiovascular History: Reports: Hx Hypercholesterolemia, Hx Hypertension Denies: Hx Pacemaker/ICD History: Reports: Hx Kidney Stones Denies: Hx Renal Disease Musculoskeletal History: Reports: Hx Back Problems Sensory History: Reports: Hx Contacts or Glasses Denies: Hx Hearing Aid Opthamlomology History: Reports: Hx Contacts or Glasses Psychiatric History: Denies: Hx Panic Disorder - Surgical History Surgery Procedure, Year, and Place: ARTHROSCOPIC RIGHT KNEE-REMOVED CYST 1990. KIDNEY STONES REMOVED SEVERAL TIMES. TONSILS CHILD-BROKEN LEG CHILD NO METAL Infectious Disease History: No Infectious Disease History: Denies: Traveled Outside the [place] in Last 30 Days - Family History Known Family History: Positive: Other - [place], parkinson's disease - Social History Alcohol Use: Rare Hx Substance Use: No Substance Use Type: Reports: None Smoking Status (MU): Never Smoked Tobacco Review of Systems Negative: Fever, Chills Positive: Abdominal Pain - RLQ, Nausea. Negative: Vomiting All Other Systems Reviewed And Are Negative: Yes Physical Exam - Summary Physical Exam Summary: VITAL SIGNS: Reviewed. GENERAL: Patient is a well-developed and nourished male who is lying comfortable in the stretcher. ~Patient is not in any acute respiratory distress. HEAD AND FACE: Normocephalic and atraumatic. EYES: PERRLA, EOMI x 2, No injected conjunctiva. EARS: Hearing grossly intact. Ear canals and tympanic membranes are WNL. MOUTH: Oropharynx within normal limits. NECK: Supple, trachea is midline, no adenopathy, no JVD. CHEST: Symmetric, no tenderness at palpation LUNGS: Clear to auscultation bilaterally. No wheezing or crackles. CVS: RRR, S1 and S2 present, no murmurs or gallops appreciated. ABDOMEN: Soft, RLQ tenderness. No signs of distention. Positive bowel sounds. No rebound no guarding, and no masses palpated. No abdominal bruit or pulsations. EXTREMITIES: FROM in all major joints, no edema, no cyanosis or clubbing. NEURO: Alert and oriented x 3. No acute neurological deficits. Speech is normal. SKIN: Dry and warm Triage Information Reviewed: Yes Vital Signs On Initial Exam: Initial Vitals Temp Pulse Resp BP Pulse Ox 98.5 F 74 16 179/112 97 02/24/18 13:17 02/24/18 13:17 02/24/18 13:17 02/24/18 13:17 02/24/18 13:17 Vital Signs Reviewed: Yes Diagnostics - Vital Signs Vital Signs Temp Pulse Resp BP Pulse Ox 02/24/18 13:17 98.5 F 74 16 179/112 97 - Laboratory Lab Results: Lab Results 02/24/18 02/24/18 02/24/18 Range/Units 13:38 13:38 13:38 WBC 10.8 (3.5-10.8) 10^3/ul RBC 5.34 (4.0-5.4) 10^6/ul Hgb 16.7 (14.0-18.0) g/dl Hct 49 (42-52) % MCV 91 (80-94) fL MCH 31 (27-31) pg MCHC 34 (31-36) g/dl RDW 14 (10.5-15) % Plt Count 237 (150-450) 10^3/ul MPV 7.9 (7.4-10.4) um3 Neut % (Auto) 75.1 (38-83) % Lymph % (Auto) 16.6 L (25-47) % Guadalupe % (Auto) 7.2 H (0-7) % Eos % (Auto) 0.5 (0-6) % Baso % (Auto) 0.6 (0-2) % Absolute Neuts (auto) 8.1 H (1.5-7.7) 10^3/ul Absolute Lymphs (auto) 1.8 (1.0-4.8) 10^3/ul Absolute Monos (auto) 0.8 (0-0.8) 10^3/ul Absolute Eos (auto) 0.1 (0-0.6) 10^3/ul Absolute Basos (auto) 0.1 (0-0.2) 10^3/ul Absolute Nucleated RBC 0 10^3/ul Nucleated RBC % 0 Sodium 134 L (139-145) mmol/L Potassium 4.6 (3.5-5.0) mmol/L Chloride 99 L (101-111) mmol/L Carbon Dioxide 27 (22-32) mmol/L Anion Gap 8 (2-11) mmol/L BUN 16 (6-24) mg/dL Creatinine 0.95 (0.67-1.17) mg/dL Est GFR ( Amer) 102.3 (>60) Est GFR (Non-Af Amer) 79.6 (>60) BUN/Creatinine Ratio 16.8 (8-20) Glucose 106 H (70-100) mg/dL Lactic Acid 0.9 (0.5-2.0) mmol/L Calcium 9.6 (8.6-10.3) mg/dL Magnesium 2.0 (1.9-2.7) mg/dL Total Bilirubin 0.60 (0.2-1.0) mg/dL AST 22 (13-39) U/L ALT 18 (7-52) U/L Alkaline Phosphatase 38 (34-104) U/L Total Creatine Kinase 118 (10-223) U/L C-Reactive Protein 1.25 (< 5.00) mg/L Total Protein 7.8 (6.4-8.9) g/dL Albumin 4.6 (3.2-5.2) g/dL Globulin 3.2 (2-4) g/dL Albumin/Globulin Ratio 1.4 (1-3) Lipase 15 (11.0-82.0) U/L Urine Color Urine Appearance Urine pH (5-9) Ur Specific Cameron (1.010-1.030) Urine Protein (Negative) Urine Ketones (Negative) Urine Blood (Negative) Urine Nitrate (Negative) Urine Bilirubin (Negative) Urine Urobilinogen (Negative) Ur Leukocyte Esterase (Negative) Urine WBC (Auto) (Absent) Urine RBC (Auto) (Absent) Ur Squamous Epith Cells (Absent) Urine Bacteria (Absent) Urine Glucose (Negative) 02/24/18 Range/Units 15:22 WBC (3.5-10.8) 10^3/ul RBC (4.0-5.4) 10^6/ul Hgb (14.0-18.0) g/dl Hct (42-52) % MCV (80-94) fL MCH (27-31) pg MCHC (31-36) g/dl RDW (10.5-15) % Plt Count (150-450) 10^3/ul MPV (7.4-10.4) um3 Neut % (Auto) (38-83) % Lymph % (Auto) (25-47) % Guadalupe % (Auto) (0-7) % Eos % (Auto) (0-6) % Baso % (Auto) (0-2) % Absolute Neuts (auto) (1.5-7.7) 10^3/ul Absolute Lymphs (auto) (1.0-4.8) 10^3/ul Absolute Monos (auto) (0-0.8) 10^3/ul Absolute Eos (auto) (0-0.6) 10^3/ul Absolute Basos (auto) (0-0.2) 10^3/ul Absolute Nucleated RBC 10^3/ul Nucleated RBC % Sodium (139-145) mmol/L Potassium (3.5-5.0) mmol/L Chloride (101-111) mmol/L Carbon Dioxide (22-32) mmol/L Anion Gap (2-11) mmol/L BUN (6-24) mg/dL Creatinine (0.67-1.17) mg/dL Est GFR ( Amer) (>60) Est GFR (Non-Af Amer) (>60) BUN/Creatinine Ratio (8-20) Glucose (70-100) mg/dL Lactic Acid (0.5-2.0) mmol/L Calcium (8.6-10.3) mg/dL Magnesium (1.9-2.7) mg/dL Total Bilirubin (0.2-1.0) mg/dL AST (13-39) U/L ALT (7-52) U/L Alkaline Phosphatase (34-104) U/L Total Creatine Kinase (10-223) U/L C-Reactive Protein (< 5.00) mg/L Total Protein (6.4-8.9) g/dL Albumin (3.2-5.2) g/dL Globulin (2-4) g/dL Albumin/Globulin Ratio (1-3) Lipase (11.0-82.0) U/L Urine Color Yellow Urine Appearance Clear Urine pH 6.0 (5-9) Ur Specific Cameron 1.015 (1.010-1.030) Urine Protein Negative (Negative) Urine Ketones 1+ A (Negative) Urine Blood Negative (Negative) Urine Nitrate Negative (Negative) Urine Bilirubin Negative (Negative) Urine Urobilinogen Negative (Negative) Ur Leukocyte Esterase Negative (Negative) Urine WBC (Auto) Trace(0-5/hpf) (Absent) Urine RBC (Auto) Absent (Absent) Ur Squamous Epith Cells Present A (Absent) Urine Bacteria Absent (Absent) Urine Glucose Negative (Negative) Result Diagrams: 02/24/18 13:38 02/24/18 13:38 Lab Statement: Any lab studies that have been ordered have been reviewed, and results considered in the medical decision making process. - CT CT Abd/Pel CT Interpretation Completed By: Radiologist - 1. Normal appendix documented. 2. Mild diverticulosis of the sigmoid colon without findings of diverticulitis. 3. Negative for obstructive uropathy. ED physician reviewed this radiology report. - EKG 1349 Cardiac Rate: NL - 71 bpm EKG Rhythm: Sinus Rhythm EKG Interpretation: No ST elevations, normal axis. Abdominal Pain Fem Course/Dx - Course Assessment/Plan: This patient is a 67-year-old male who presents to the emergency department with a chief complaint of having right lower quadrant pain. The patient has seen Dr. Busch from urology where he had ultrasounds and that was similar reports that there was no kidney stones. She thinks that the patient has an plan acute appendicitis. EKG shows a sinus rhythm at 71 bpm with no abnormalities. No ST elevations. Abdominopelvic CT impression: Fatty infiltration of the liver. Normal appendix documented. Negative for obstructive uropathy. In the ED course the patient was given Toradol for the pain. Blood test results without any significant abnormality. Abdominopelvic CT impression: Normal appendix documented. My diverticulosis of the sigmoid colon without findings of diverticulitis. Negative for obstructive uropathy. In the ED course the patient was given Toradol for the pain and the symptoms improved. Therefore, the patient was discharged home with follow with primary care physician as needed. I discussed all the findings and test results with the patient. Patient was instructed to return to the emergency room immediately if any of the symptoms return or worsens. Plan of care was discussed with the patient and understands and agrees. - Diagnoses Differential Diagnosis/HQI/PQRI: Appendicitis, Bowel Obstruction, Constipation, Renal Colic, Testicular Torsion Provider Diagnoses: Right lower quadrant pain Discharge - Sign-Out/Discharge Documenting (check all that apply): Discharge/Admit/Transfer - Discharge Plan Condition: Stable Disposition: HOME Referrals: Real Villalobos MD [Primary Care Provider] - - Billing Disposition and Condition Condition: STABLE Disposition: HOME The documentation as recorded by the Roxy freedman Rebecca accurately reflects the service I personally performed and the decisions made by me, Oniel Giraldo MD.
[2018-02-24 18:10] VITALS: BP 170/105
== END 2018-02-24 18:11 | disposition home or self-care (01) ==
LOC: ED 13:12
DX: R10.31 Right lower quadrant pain (principal); E78.00 Pure hypercholesterolemia, unspecified; I10 Essential (primary) hypertension; Z87.442 Personal history of urinary calculi; Z79.82 Long term (current) use of aspirin; E07.9 Disorder of thyroid, unspecified; K57.90 Diverticulosis of intestine, part unspecified, without perforation or abscess without bleeding
CPT/HCPCS: 36415; 74177; 80053; 81003; 82550; 83605; 83690; 83735; 85025; 86140; 87086; 93005; 96360; 96374; 96375; 99283; A9270-GY; Q9967

== ENCOUNTER 2018-03-12 08:46 | Emergency (ER) | payer MEDICARE ==
[2018-03-12] MEDS ORDERED: Ondansetron ODT TAB* 4 MG PO ONE (09:27)
[2018-03-12] MEDS ORDERED: NS 0.9% 1000 ML* 1,000 ML IV ONE (09:27)
[2018-03-12] MEDS ORDERED: Morphine VIAL* 4 MG/ML VIAL (1 ml vial) IV ONE (09:29)
[2018-03-12 09:57] LABS: ABS Basophils 0 10^3/ul (0-0.2); ABS Eosinophils 0.1 10^3/ul (0-0.6); ABS Lymphocytes 1.5 10^3/ul (1.0-4.8); ABS Monocytes 0.6 10^3/ul (0-0.8); ABS Neutrophils 4.7 10^3/ul (1.5-7.7); ABS Nucleated RBC 0 10^3/ul; Eosinophil % 1.7 % (0-6); Hematocrit 47 % (42-52); Lymphocyte % 20.9 % (25-47); Mean Corpuscular HGB Conc 34 g/dl (31-36); Mean Corpuscular Hemoglobin 31 pg (27-31); Mean Corpuscular Volume 92 fL (80-94); Mean Platelet Volume 8.2 um3 (7.4-10.4); Nucleated Red Blood Cells % 0.1; Platelet Count 222 10^3/ul (150-450); Red Blood Count 5.14 10^6/ul (4.0-5.4); Red Cell Distribution Width 14 % (10.5-15)
[2018-03-12 10:13] LABS: EGFR Non-African American 82.6 (>60)
[2018-03-12] MEDS ORDERED: Ketorolac INJ* 30 MG/ML 1 ML VIAL IV PUSH ONE (10:50)
[2018-03-12] MEDS ORDERED: Dexamethasone IV* 4 MG/ML 1 ML (4 MG) IM ONE (10:51)
[2018-03-12] MEDS ORDERED: Dexamethasone IV* 4 MG/ML 1 ML (4 MG) IV SLOW PU ONE (11:17)
[2018-03-12 12:23] VITALS: BP 146/95
--- NOTE | 2018-03-12 13:26 | ED ---
Abdominal Pain/Male - HPI Summary HPI Summary: Patient is a 67-year-old male who presents emergency department for a 2 week history of right lower quadrant abdominal pain. Patient states pain starts to his right side and extends into his groin and occasionally into his leg. Patient was seen in our ER 2 weeks ago and had a CAT scan did not that time which was unremarkable. His pain persisted and PCP ordered a pelvic MRI. Patient presents today because pain worsened and he was unable to sleep last night. Pain is worse with sitting and better when standing and stretching. Associated symptoms of nausea. Denies vomiting, fever, recent upper respiratory infection, urinary symptoms, diarrhea, constipation, chest pain, shortness of breath. Symptoms are moderate in severity. Past medical history of hypertension, high cholesterol, hypothyroidism. - History of Current Complaint Chief Complaint: EDAbdPain Stated Complaint: ABD/FLANK PAIN Time Seen by Provider: 03/12/18 08:59 Hx Obtained From: Patient, Family/Tool Chaser Pain Intensity: 5 Pain Scale Used: 0-10 Numeric - Allergies/Home Medications Allergies/Adverse Reactions: Allergies Allergy/AdvReac Type Severity Reaction Status Date / Time No Known Allergies Allergy Verified 03/12/18 08:50 PMH/Surg Hx/FS Hx/Imm Hx Previously Healthy: Yes Endocrine/Hematology History: Reports: Hx Thyroid Disease Denies: Hx Diabetes Cardiovascular History: Reports: Hx Hypercholesterolemia, Hx Hypertension Denies: Hx Pacemaker/ICD History: Reports: Hx Kidney Stones Denies: Hx Renal Disease Musculoskeletal History: Reports: Hx Back Problems Sensory History: Reports: Hx Contacts or Glasses Denies: Hx Hearing Aid Opthamlomology History: Reports: Hx Contacts or Glasses Psychiatric History: Denies: Hx Panic Disorder - Surgical History Surgery Procedure, Year, and Place: ARTHROSCOPIC RIGHT KNEE-REMOVED CYST 1990. KIDNEY STONES REMOVED SEVERAL TIMES. TONSILS CHILD-BROKEN LEG CHILD NO METAL Infectious Disease History: No Infectious Disease History: Denies: Traveled Outside the [place] in Last 30 Days - Family History Known Family History: Positive: Other - [place], parkinson's disease - Social History Occupation: Retired Lives: With Family Alcohol Use: Rare Hx Substance Use: No Substance Use Type: Reports: None Smoking Status (MU): Never Smoked Tobacco Review of Systems Constitutional: Negative Negative: Fever, Chills Eyes: Negative ENT: Negative Cardiovascular: Negative Negative: Palpitations, Chest Pain Respiratory: Negative Negative: Shortness Of Breath, Cough Positive: Abdominal Pain, Nausea. Negative: Vomiting, Diarrhea Genitourinary: Negative Negative: Rash Negative: Weakness, Paresthesia, Numbness All Other Systems Reviewed And Are Negative: Yes Physical Exam Triage Information Reviewed: Yes Vital Signs On Initial Exam: Initial Vitals Temp Pulse Resp BP Pulse Ox 98 F 93 17 138/99 97 03/12/18 08:46 03/12/18 08:46 03/12/18 08:46 03/12/18 08:46 03/12/18 08:46 Vital Signs Reviewed: Yes Appearance: Positive: Pain Distress - Pt. lying on left side in bed, appears in pain but nontoxic. present. Skin: Positive: Warm, Dry Head/Face: Positive: Normal Head/Face Inspection Eyes: Positive: Normal Neck: Positive: Supple Respiratory/Lung Sounds: Positive: Clear to Auscultation, Breath Sounds Present Cardiovascular: Positive: Normal, RRR Abdomen Description: Positive: Other: - Abdomen is soft with mild diffuse tenderness. Rebound tenderness or guarding. No palpable mass noted. No rigidity. No CVA tenderness bilaterally. No rash noted. Neurological: Positive: Normal, CN Intact II-III Psychiatric: Positive: Affect/Mood Appropriate Diagnostics - Vital Signs Vital Signs Temp Pulse Resp BP Pulse Ox 03/12/18 12:22 98.6 F 95 17 146/95 99 03/12/18 12:02 91 146/94 96 03/12/18 12:00 94 96 03/12/18 11:32 97 165/95 98 03/12/18 11:02 89 150/102 97 03/12/18 11:00 91 98 03/12/18 10:32 78 146/92 96 03/12/18 10:02 84 148/96 94 03/12/18 10:00 91 95 03/12/18 09:46 99 160/111 97 03/12/18 09:43 18 03/12/18 09:01 96 176/114 98 03/12/18 09:00 98 98 03/12/18 08:59 95 99 03/12/18 08:46 98 F 93 17 138/99 97 - Laboratory Lab Results: Lab Results 03/12/18 03/12/18 03/12/18 Range/Units 09:45 09:45 09:45 WBC 7.0 (3.5-10.8) 10^3/ul RBC 5.14 (4.0-5.4) 10^6/ul Hgb 16.0 (14.0-18.0) g/dl Hct 47 (42-52) % MCV 92 (80-94) fL MCH 31 (27-31) pg MCHC 34 (31-36) g/dl RDW 14 (10.5-15) % Plt Count 222 (150-450) 10^3/ul MPV 8.2 (7.4-10.4) um3 Neut % (Auto) 68.1 (38-83) % Lymph % (Auto) 20.9 L (25-47) % [place] % (Auto) 8.7 H (0-7) % Eos % (Auto) 1.7 (0-6) % Baso % (Auto) 0.6 (0-2) % Absolute Neuts (auto) 4.7 (1.5-7.7) 10^3/ul Absolute Lymphs (auto) 1.5 (1.0-4.8) 10^3/ul Absolute Monos (auto) 0.6 (0-0.8) 10^3/ul Absolute Eos (auto) 0.1 (0-0.6) 10^3/ul Absolute Basos (auto) 0 (0-0.2) 10^3/ul Absolute Nucleated RBC 0 10^3/ul Nucleated RBC % 0.1 Sodium 138 L (139-145) mmol/L Potassium 4.2 (3.5-5.0) mmol/L Chloride 104 (101-111) mmol/L Carbon Dioxide 27 (22-32) mmol/L Anion Gap 7 (2-11) mmol/L BUN 14 (6-24) mg/dL Creatinine 0.92 (0.67-1.17) mg/dL Est GFR ( Amer) 106.2 (>60) Est GFR (Non-Af Amer) 82.6 (>60) BUN/Creatinine Ratio 15.2 (8-20) Glucose 110 H (70-100) mg/dL Lactic Acid 1.0 (0.5-2.0) mmol/L Calcium 9.8 (8.6-10.3) mg/dL Total Bilirubin 0.60 (0.2-1.0) mg/dL AST 25 (13-39) U/L ALT 19 (7-52) U/L Alkaline Phosphatase 42 (34-104) U/L Total Protein 7.6 (6.4-8.9) g/dL Albumin 4.5 (3.2-5.2) g/dL Globulin 3.1 (2-4) g/dL Albumin/Globulin Ratio 1.5 (1-3) Lipase 12 (11.0-82.0) U/L Result Diagrams: 03/12/18 09:45 03/12/18 09:45 Lab Statement: Any lab studies that have been ordered have been reviewed, and results considered in the medical decision making process. Abdominal Pain Fem Course/Dx - Course Course Of Treatment: Pt. presenting with ongoing lower abdominal pain 2 weeks. He is afebrile with stable vital signs. Patient had an MRI of his pelvis done 2 days ago is negative for acute findings other than a right inguinal hernia. No palpable mass was noted on exam. Patient was given a dose of IV morphine and Zofran with moderate relief of this pain. Patient was examined by Dr. Giraldo as well. He feels pain may be secondary to patient's back and sciatica given nature of pain. Recommended giving IV Toradol and Decadron which mildly improved patient's symptoms. Patient has an appointment with surgery tomorrow for further evaluation. Did prescribe a few days of pain medication and nausea medication. MEDICAL SCRIBE was queried and no red flags noted. Advised patient to apply warm compresses to low back. Return to the ER symptoms change or worsen. Patient understands and agrees with plan. - Diagnoses Differential Diagnosis/HQI/PQRI: Appendicitis, Constipation, Pancreatitis, Renal Colic, Ureteral Stone, Urinary Tract Infection Provider Diagnoses: Abdominal pain, Sciatica Discharge - Sign-Out/Discharge Documenting (check all that apply): Discharge/Admit/Transfer - Discharge Plan Condition: Good Disposition: HOME Prescriptions: Hydrocodone/Acetaminophen [Hydrocodone-Acetamin 5-325 mg] 1 each PO Q6HR #12 tablet MDD 4tablets Ondansetron TAB* [Zofran 4 MG Tab*] 4 mg PO Q6H PRN #12 tab PRN Reason: Nausea Patient Education Materials: Sciatica (ED), Inguinal Hernia (ED) Referrals: Real Villalobos MD [Primary Care Provider] - Additional Instructions: Follow up with surgery tomorrow as scheduled Schedule an appointment with PCP as well Apply warm compresses to low back Pain medication as directed Return to ER if symptoms change or worsen - Billing Disposition and Condition Condition: GOOD Disposition: Home
== END 2018-03-12 12:22 | disposition home or self-care (01) ==
LOC: ED 08:46
DX: R10.31 Right lower quadrant pain (principal); M54.30 Sciatica, unspecified side; I10 Essential (primary) hypertension; E78.00 Pure hypercholesterolemia, unspecified; E03.9 Hypothyroidism, unspecified
CPT/HCPCS: 36415; 80053; 83605; 83690; 85025; 96361; 96374; 96375; 99283; A9270-GY; J1100; J1885; J2270

== ENCOUNTER 2018-03-21 11:11 | Day surgery (SDC) | payer MEDICARE ==
[~2018-03-21 11:11] MED LIST: Buffered Lidocaine 0.9% SYRIN* 5 ML/SYR SYRINGE INTRADERM ONE; Dexamethasone TAB* 4 MG PO ONE; DiMENhydriNATE IV* 50 MG/ML VIAL IV PUSH PRN; Famotidine IV* 10 MG/ML 2 ML (20 mg) IV ONE; Morphine INJ* 2 MG/ML 1 ML CARPUJECT IV PRN; Naloxone* 0.4 MG/ML 1 ML VIAL IV PRN; Ondansetron INJ* 2 MG/ML VIAL ONE; PROCHLORPERAZINE INJ 5 MG/ML 2 ML VIAL IV PRN
[2018-03-21] MEDS ORDERED: Ondansetron ODT TAB* 4 MG ONE (11:33)
[2018-03-21] MEDS ORDERED: Famotidine IV* 10 MG/ML 2 ML (20 mg) ONE (11:33)
[2018-03-21] MEDS ORDERED: Dexamethasone TAB* 4 MG ONE (11:33)
[2018-03-21] MEDS ORDERED: ceFAZolin 2 GM PREMIX (*) 2 GM/50 ML BAG IVPB ONE (11:34)
[2018-03-21] MEDS ORDERED: Buffered Lidocaine 0.9% SYRIN* 5 ML/SYR SYRINGE ONE (11:34)
[2018-03-21] MEDS ORDERED: Atracurium* 10 MG/ML 10 ML VIAL ONE (11:46)
[2018-03-21] MEDS ORDERED: Midazolam* 1 MG/ML 5 ML VIAL (5 MG) ONE (11:46)
[2018-03-21] MEDS ORDERED: fentaNYL* 50 MCG/ML 2 ML VIAL (100 MCG VIAL) ONE ×3 (11:46→15:15)
[2018-03-21] MEDS ORDERED: Bupivacaine 0.5% SDV PF* 30ML VIAL ONE ×2 (13:08→13:26)
[2018-03-21] MEDS ORDERED: Lidocaine 2% PF * 5 ML VIAL ONE (14:02)
[2018-03-21] MEDS ORDERED: Propofol* 10 MG/ML 20 ML BTL IV PUSH ONE (14:02)
[2018-03-21] MEDS ORDERED: Ketorolac INJ* 30 MG/ML 1 ML VIAL ONE (14:02)
[2018-03-21] MEDS ORDERED: PROCHLORPERAZINE INJ 5 MG/ML 2 ML VIAL ONE (14:02)
[2018-03-21] MEDS ORDERED: Glycopyrrolate IV* 0.2 MG/ML 1 ML VIAL ONE (14:02)
[2018-03-21] MEDS ORDERED: hydrALAZINE IV* 20 MG/ML VIAL ONE (14:48)
--- NOTE | 2018-03-21 15:06 | OP ---
Operative Report - Blank - Operative Report Date of Operation: 03/21/18 Note: Brief Operative Note Preop Dx: Right Inguinal Hernia Postop Dx: same; direct Procedure: Laparoscopic repair RIH w/ mesh Anesthesia: GET Surgeon: Nain Ethylene Plant Helper: DEVANG Bolden Fluids: 1300 ml RL EBL: none Specimen: none Drains: none Findings: dictated
[2018-03-21] MEDS: fentaNYL* 50 MCG/ML 2 ML VIAL (100 MCG VIAL) IV PRN ×4 (15:15→16:12)
[2018-03-21] MEDS ORDERED: oxyCODONE/Acetamin 5/325 MG* TAB ONE ×2 (15:57→17:07)
[2018-03-21] MEDS: oxyCODONE/Acetamin 5/325 MG* TAB PO PRN ×2 (15:59→17:07)
[2018-03-21] MEDS ORDERED: Morphine VIAL* 10 MG/ML 1 ML VIAL ONE (17:51)
[2018-03-21 18:12] VITALS: BP 130/86
--- NOTE | 2018-03-23 08:42 | OP ---
CC: Real Villalobos MD * DATE OF OPERATION: 03/21/18 - [facility] DATE OF : 54 SURGEON: Troy Gillette MD SONOGRAM TECHNICIAN: DEVANG Saleem ANESTHESIOLOGIST: Murali Greenberg MD ANESTHESIA: General endotracheal. PRE-OP DIAGNOSIS: Right inguinal hernia. POST-OP DIAGNOSIS: Right inguinal hernia. OPERATIVE PROCEDURE: Laparoscopic preperitoneal repair, right inguinal hernia with mesh. ESTIMATED BLOOD LOSS: Minimal. IV FLUIDS: 1.3 L of crystalloid. SPECIMEN: None. DRAINS: None. COMPLICATIONS: None. COUNTS: Instrument, needle, and sponge counts correct. DESCRIPTION OF PROCEDURE: The patient was brought to the operating room and placed on the table supine. Sequential compression devices were placed in both lower extremities and general anesthesia was administered. Madden catheter was placed. He was positioned and padded appropriately and prepped and draped in the usual sterile fashion. He received appropriate antibiotics. Time-out was performed. Local anesthetic was infiltrated into the skin and soft tissue prior to making each incision. A curvilinear infraumbilical incision was created and the subcutaneous tissue was divided with cautery. The anterior rectus fascia was identified and incised transversely to the right of midline. The underlying muscle was retracted laterally and a preperitoneal balloon dissector was placed down to the level of the pubic symphysis and then insufflated under direct visualization allowing dissection only on the right side. This balloon dissector was then removed and replaced with a 12-mm blunt port and carbon dioxide was insufflated to a pressure of 15 mmHg. Under direct visualization, two 5 mm trocars were placed in the lower midline. The dissection proceeded from the midline identifying the pubic symphysis and then working laterally identifying the Tobi's ligament and the inferior epigastric vessels, which were anteriorly. There appeared to be weakness in the area of the direct space. Further laterally, the components of the spermatic cord were encountered and dissection revealed no extension of the peritoneal sac to within the inguinal region. There was lipoma of the cord that was reduced. The dissection proceeded laterally to anterosuperior iliac spine. After completing the dissection, repair of the hernia was performed using the Medtronic ProGrip mesh, which was cut to fit the dissected space covering the direct, indirect, and femoral spaces and no fixation was used. The ports were then removed under direct visualization and carbon dioxide was released. The wounds were closed with 0 Vicryl to approximate the anterior fascia and skin incisions were closed with 4-0 Monocryl. Steri-Strips were applied with dry dressings. The patient tolerated this procedure well and was extubated and transferred to recovery room in stable condition. [id number]/CPS #: [id number] MTDD
== END 2018-03-21 19:01 | disposition home or self-care (01) ==
LOC: OR 11:11
PROVIDERS: ATTEND Surgery
DX: K40.90 Unilateral inguinal hernia, without obstruction or gangrene, not specified as recurrent (principal)
CPT/HCPCS: A9270-GY; J0360; J0690; J0780; J1885; J2250; J2270; J2704; J3010; J8540

== ENCOUNTER 2018-09-26 21:29 | Emergency (ER) | payer MEDICARE ==
--- OUTSIDE RECORDS SUMMARY | 2018-09-26 21:46 | XMS REPORT | Continuity of Care Document ---
:1950 External Reference #:[id number] Author Name Zaina Jose Care Team Providers Name Role Phone Real Villalobos MD Primary Care Physician Unavailable Payers Type Date Identification Numbers Payment Provider Subscriber Policy Number: [id number] Medicare Lyle Alexander PayID: [id number] [address] [place] [address] Expires: 2018 Policy Number: [id number] Medicare Lyle Alexander PayID: [id number] [address] [place] [address] Policy Number: [id number] [facility] Lyle Alexander PayID: [id number] [address] [place] [address] Expires: 2017 Policy Number: [id number] [facility] Lyle Alexander PayID: [id number] [address] [address] RobertJM chavez [address] Advance Directives Description No Information Available Problems Description No Information Family History Date Family Member(s) Problem(s) Comments General Cancer Father Heart Disease : (age 56 Father due to Years) Parkinsons Disease Mother Asthma Mother due to CAD () - aortic stenosisDocument: 03/13/18 - History Mother Heart Disease Social History Type Date Description Comments Sex Unknown Lives With Occupation Retired ETOH Use Occasionally consumes alcohol Tobacco Use Start: Unknown Patient has never smoked Smoking Status Reviewed: 09/13/18 Patient has never smoked Exercise Type/Frequency Exercises regularly Allergies, Adverse Reactions, Alerts Description No Known Drug Allergies Medications Medication Date Status Form Strength Qnty SIG Indications Ordering Provider Lisinopril Active 20mg 1 tab Unknown 000 daily Levothyroxine Active 50mg 1 tab Unknown Sodium 000 daily Aspirin Ec Active 1 tab Unknown 000 daily Simvastatin Active Tablets 20mg 1 by Unknown 000 mouth every day Gabapentin Hx Capsules 300mg 90caps Take 1 [place] 018 - Capsule [place], By Mouth , MELVIN 018 Once Daily For 1 Day And Then 1 Twice Daily For 1 Day And Then 1 Three Times Daily Aleve Hx Tablets 220mg 2 tablets Unknown 000 as needed for pain Ibuprofen Hx Tablets 600mg two times Unknown 000 a day as needed Tramadol HCL Hx Tablets 50mg every 6 [place], 000 hours as MD Real needed Medications Administered in Office Medication Date Status Form Strength Qnty SIG Indications Ordering Provider Depomedrol Administered Injection Dirk Angela, 40MG 018 M.D. Depomedrol Administered Injection Chivo F 40MG 018 MD Alvarado Depomedrol Administered Injection Dirk Angela, 40MG 018 M.D. Depomedrol Administered Injection Dirk Angela, 40MG 018 M.D. Depomedrol Administered Injection Dirk Angela, 40MG 017 M.D. Depomedrol Administered Injection Dirk Angela, 40MG 017 M.D. Depomedrol Administered Injection Dirk Angela, 40MG 017 M.D. Depomedrol Administered Injection Dirk Angela, 40MG 016 M.D. Depomedrol Administered Injection Dirk Angela, 40MG 016 M.D. Immunizations Description No Information Available Vital Signs Date Vital Result Comment 09/13/2018 10:00am Height 67 inches 5'7" Weight 175.00 lb BP Systolic 124 mmHg BP Diastolic 71 mmHg Respiratory Rate 15 /min Body Temperature 97.1 F Pain Level 0 BMI (Body Mass Index) 27.4 kg/m2 07/17/2018 1:20pm Heart Rate 78 /min BP Systolic Sitting 126 mmHg BP Diastolic Sitting 78 mmHg Respiratory Rate 18 /min Body Temperature 97.3 F 06/19/2018 8:53am Heart Rate 66 /min BP Systolic Sitting 128 mmHg BP Diastolic Sitting 78 mmHg Respiratory Rate 16 /min Body Temperature 97.9 F 05/29/2018 4:05pm Height 67 inches 5'7" Weight 175.00 lb BP Systolic Sitting 136 mmHg BP Diastolic Sitting 96 mmHg Respiratory Rate 16 /min Body Temperature 97.6 F Pain Level 4 BMI (Body Mass Index) 27.4 kg/m2 05/18/2018 8:37am Heart Rate 72 /min BP Systolic 126 mmHg BP Diastolic 82 mmHg Respiratory Rate 16 /min Body Temperature 96.7 F 05/08/2018 2:05pm Heart Rate 66 /min BP Systolic Sitting 124 mmHg BP Diastolic Sitting 78 mmHg Respiratory Rate 18 /min Body Temperature 97.6 F 03/29/2018 11:19am Heart Rate 96 /min BP Systolic Sitting 118 mmHg BP Diastolic Sitting 78 mmHg Respiratory Rate 18 /min Body Temperature 97.0 F 03/13/2018 10:14am Height 67 inches 5'7" Weight 175.00 lb Heart Rate 80 /min BP Systolic 128 mmHg BP Diastolic 80 mmHg Respiratory Rate 16 /min Body Temperature 97.8 F BMI (Body Mass Index) 27.4 kg/m2 02/15/2018 3:15pm Height 66 inches 5'6" Weight 181.00 lb Heart Rate 78 /min BP Systolic Sitting 108 mmHg BP Diastolic Sitting 78 mmHg Respiratory Rate 16 /min Body Temperature 97.5 F Pain Level 2 BMI (Body Mass Index) 29.2 kg/m2 10/05/2017 9:06am Height 66 inches 5'6" Weight 181.00 lb BP Systolic 124 mmHg BP Diastolic 68 mmHg Respiratory Rate 18 /min Pain Level 3 BMI (Body Mass Index) 29.2 kg/m2 09/19/2017 8:52am Height 66 inches 5'6" Weight 171.00 lb Heart Rate 84 /min BP Systolic 124 mmHg BP Diastolic 84 mmHg Body Temperature 96.3 F Pain Level 0 BMI (Body Mass Index) 27.6 kg/m2 07/20/2017 2:30pm Height 66 inches 5'6" Weight 171.00 lb Heart Rate 88 /min BP Systolic 121 mmHg BP Diastolic 79 mmHg Body Temperature 96.7 F Pain Level 2 BMI (Body Mass Index) 27.6 kg/m2 06/13/2017 2:23pm Height 66 inches 5'6" Weight 181.00 lb BP Systolic 118 mmHg BP Diastolic 66 mmHg Respiratory Rate 18 /min Pain Level 3 BMI (Body Mass Index) 29.2 kg/m2 03/07/2017 10:10am Height 66 inches 5'6" Weight 181.00 lb Heart Rate 70 /min BP Systolic 120 mmHg BP Diastolic 82 mmHg Respiratory Rate 15 /min Body Temperature 97.1 F Pain Level 2 BMI (Body Mass Index) 29.2 kg/m2 10/25/2016 8:43am Height 66 inches 5'6" Weight 176.00 lb Pain Level 6 BMI (Body Mass Index) 28.4 kg/m2 07/29/2016 2:44pm Height 67 inches 5'7" Weight 175.00 lb Heart Rate 101 /min BP Systolic 129 mmHg BP Diastolic 93 mmHg BMI (Body Mass Index) 27.4 kg/m2 07/07/2016 3:38pm Height 68 inches 5'8" Weight 176.00 lb Heart Rate 113 /min BP Systolic 121 mmHg BP Diastolic 84 mmHg BMI (Body Mass Index) 26.8 kg/m2 04/12/2016 3:01pm Height 68 inches 5'8" Weight 176.00 lb Heart Rate 82 /min BP Systolic 129 mmHg BP Diastolic 85 mmHg BMI (Body Mass Index) 26.8 kg/m2 02/23/2016 3:00pm Height 68 inches 5'8" Weight 176.00 lb Pain Level 3 BMI (Body Mass Index) 26.8 kg/m2 02/09/2016 8:54am Height 68 inches 5'8" Weight 176.00 lb Heart Rate 82 /min BP Systolic 132 mmHg BP Diastolic 83 mmHg BMI (Body Mass Index) 26.8 kg/m2 08/21/2014 8:10am Height 68 inches 5'8" Weight 176.00 lb Heart Rate 77 /min BP Systolic 140 mmHg BP Diastolic 95 mmHg BMI (Body Mass Index) 26.8 kg/m2 07/24/2012 9:07am Height 68 inches 5'8" Weight 175.00 lb Heart Rate 78 /min BP Systolic 135 mmHg BP Diastolic 87 mmHg BMI (Body Mass Index) 26.6 kg/m2 Results Description No Information Available Procedures Date Code Description Status 09/13/2018 Inject/Drain Joint/Bursa Major W/O US Completed 05/29/2018 Inject/Drain Joint/Bursa Major W/O US Completed 05/15/2018 66605 Dest Lesion Each Addl Lesion 2 Through 14 Each Completed 05/15/2018 06258 Destruction ALL Benign Or Premalignant Lesion (Other Than Completed [place] 03/21/2018 18792 Laparoscopy, Surgical Repair Initial Inguinal Hernia Completed 03/21/2018 63200 Laparoscopy, Surgical Repair Initial Inguinal Hernia Completed 02/15/2018 07142 Inject/Drain Joint/Bursa Major W/O US Completed 10/05/201777078 Inject/Drain Joint/Bursa Major W/O US Completed 06/13/201752709 Inject/Drain Joint/Bursa Major W/O US Completed 03/07/201706458 Inject/Drain Joint/Bursa Major W/O US Completed 10/25/201678974 Inject/Drain Joint/Bursa Major W/O US Completed 07/07/201614458 Inject/Drain Joint/Bursa Major W/O US Completed 04/12/201656536 Inject/Drain Joint/Bursa Major W/O US Completed 08/21/2014 74974 Xray Knee 3 Views Completed 08/21/2014 00190 Rad Exam; Knee, Ap&L Completed Encounters Type Date Location Provider Dx Diagnosis Office Visit 07/17/2018 [facility] Gillette, R10.31 Right lower 1:30p Of [facility] ANTHONY, MELVIN quadrant pain Office Visit 04/20/2018 [facility] Dermatology John Paul Gauthier MD L82.1 Other seborrheic 9:00a keratosis L81.4 Other melanin hyperpigmentation L57.0 Actinic keratosis L56.8 Oth acute skin changes due to ultraviolet radiation Office Visit 03/13/2018 10:15a Surgical Troy Gillette, K40.90 Unil inguinal [facility] ANTHONY, MELVIN hernia, w/o obst or gangr, not spcf as recur R10.31 Right lower quadrant pain Office Visit 09/19/2017 [facility], S76.312A Strain of 9:00a Services Of MD alvarez/eder/tnd post C.M.A. grp at thi lev, left thigh, init Office Visit 07/20/2017 [facility], S76.212A Strain of 2:30p Services Of MD isreal Huang.M.A. musc/fasc/tend left thigh, init [facility] Strain of 12:41p Assoc,zaynab Pop M.D. msl/fasc/tnd post Hospitalists grp at [facility], left thigh, init M79.605 Pain in left leg I10 Essential (primary) hypertension Office Visit 07/07/2017 12:40p [facility], M79.605 Pain in Assoc,zaynab Hill left leg Hospitalists E78.5 Hyperlipidemia, unspecified S39.92xA Unspecified injury of lower back, initial encounter I10 Essential (primary) hypertension Office Visit 07/07/2017 11:36a [facility] Andrade Griffith, M79.662 Pain in left Services Of lower leg C.M.A. Office Visit 03/07/2017 10:15a [facility]opedic Danial Miller M17.11 Unilateral Services Of Liz primary C.M.A. osteoarthritis, right knee M23.000 Cystic meniscus, unspecified lateral meniscus, right knee Office Visit 07/29/2016 3:00p Orthopedic Marlena M67.441 Ganglion, right Services Of Liz Woodruff hand C.M.A. Office Visit 02/23/2016 3:15p [facility] Danial Miller, M17.11 Unilateral Services Of Liz primary C.M.A. osteoarthritis, right knee M23.000 Cystic meniscus, unspecified lateral meniscus, right knee Office Visit 02/09/2016 [facility] Danial Miller, M17.11 Unilateral primary 8:30a Services Of Liz osteoarthritis, C.M.A. right knee Office Visit 08/21/2014 Orthopedic Danial Miller, 715.16 Osteoarthrosis 8:00a Services Of Liz Localized Prim Lower C.M.A. Leg Office Visit 07/24/2012 Orthopedic Anu 719.44 Pain Joint Hand 8:45a Services Of [place] Lozano M.D. Plan of Treatment Future Appointment(s):04/23/2019 9:00 am - John Paul Gauthier MD at [facility] [id number]/12/2018 - Danial Miller M.D.M17.11 Unilateral primary osteoarthritis , right kneeFollow up:Follow up: As needed Continue knee exercises Shoot low scores as able
[2018-09-26] MEDS ORDERED: oxyCODONE/Acetamin 5/325 MG* TAB PO ONE (22:26)
[2018-09-26] MEDS ORDERED: Clindamycin CAP* 150 MG PO ONE (22:27)
--- NOTE | 2018-09-26 22:33 | ED ---
Throat Pain/Nasal Congestion - HPI Summary HPI Summary: This patient is a 68 year old M presenting to [facility] with a chief complaint of dental/jaw pain. He visited his dentist who could not see him due to the holidays but prescribed him penicillin. His symptoms have not resolved. He complains of pain in his molar on the right side, and states the pain has only gotten worse. The patient rates the pain 8/10 in severity. - History of Current Complaint Chief Complaint: EDDentalPain Time Seen by Provider: 09/26/18 22:12 Hx Obtained From: Patient Severity: Moderate Associated Signs And Symptoms: Positive: Negative Cough: None - Allergies/Home Medications Allergies/Adverse Reactions: Allergies Allergy/AdvReac Type Severity Reaction Status Date / Time No Known Allergies Allergy Verified 03/21/18 11:39 PMH/Surg Hx/FS Hx/Imm Hx Endocrine/Hematology History: Reports: Hx Thyroid Disease Denies: Hx Diabetes Cardiovascular History: Reports: Hx Hypercholesterolemia, Hx Hypertension - controlled with meds Denies: Hx Pacemaker/ICD GI History: Reports: Hx Irritable Bowel - hx of years ago - resolved History: Reports: Hx Kidney Stones Denies: Hx Renal Disease Musculoskeletal History: Reports: Hx Arthritis - in back area, Hx Back Problems Sensory History: Reports: Hx Cataracts - very minor left eye, Hx Contacts or Glasses - both - will wear glasses for surgery Denies: Hx Hearing Aid Opthamlomology History: Reports: Hx Cataracts - very minor left eye, Hx Contacts or Glasses - both - will wear glasses for surgery Psychiatric History: Denies: Hx Panic Disorder - Cancer History Hx Chemotherapy: No - Surgical History Surgery Procedure, Year, and Place: ARTHROSCOPIC RIGHT KNEE-REMOVED CYST 1990. KIDNEY STONES REMOVED SEVERAL TIMES. TONSILS CHILD-BROKEN LEG CHILD NO METAL Hx Anesthesia Reactions: No Infectious Disease History: No Infectious Disease History: Denies: Traveled Outside the [place] in Last 30 Days - Family History Known Family History: Positive: Other - [place], parkinson's disease - Social History Alcohol Use: Rare Hx Substance Use: No Substance Use Type: Reports: None Smoking Status (MU): Never Smoked Tobacco Review of Systems Negative: Fever Positive: Dental Pain All Other Systems Reviewed And Are Negative: Yes Physical Exam - Summary Physical Exam Summary: VITAL SIGNS: Reviewed. GENERAL: Patient is a well-developed and nourished MALE who is lying comfortable in the stretcher. Patient is not in any acute respiratory distress. HEAD AND FACE: No signs of trauma. No ecchymosis, hematomas or skull depressions. No sinus tenderness. EYES: PERRLA, EOMI x 2, No injected conjunctiva, no nystagmus. EARS: Hearing grossly intact. Ear canals and tympanic membranes are within normal limits. MOUTH: Oropharynx within normal limits. Tenderness over the right lower anterior gum. NECK: Supple, trachea is midline, no adenopathy, no JVD, no carotid bruit, no c- spine tenderness, neck with full ROM. CHEST: Symmetric, no tenderness at palpation LUNGS: Clear to auscultation bilaterally. No wheezing or crackles. CVS: Regular rate and rhythm, S1 and S2 present, no murmurs or gallops appreciated. ABDOMEN: Soft, non-tender. No signs of distention. No rebound no guarding, and no masses palpated. Bowel sounds are normal. EXTREMITIES: FROM in all major joints, no edema, no cyanosis or clubbing. NEURO: Alert and oriented x 3. No acute neurological deficits. Speech is normal and follows commands. SKIN: Dry and warm Triage Information Reviewed: Yes Vital Signs On Initial Exam: Initial Vitals Temp Pulse Resp BP Pulse Ox 98.7 F 117 20 179/116 96 09/26/18 21:32 09/26/18 21:32 09/26/18 21:32 09/26/18 21:32 09/26/18 21:32 Vital Signs Reviewed: Yes Diagnostics - Vital Signs Vital Signs Temp Pulse Resp BP Pulse Ox 09/26/18 21:32 98.7 F 117 20 179/116 96 - Laboratory Lab Statement: Any lab studies that have been ordered have been reviewed, and results considered in the medical decision making process. EENT Course/Dx - Course Course Of Treatment: This patient is a 68 year old M presenting to [facility] with a chief complaint of dental/jaw pain. He visited his dentist who could not see him due to the holidays but prescribed him penicillin. His symptoms have not resolved. He will be discharged and prescribed percocet for his pain and see his dentist within 7 days. This plan was discussed with the patient and he was agreeable with this plan. - Diagnoses Provider Diagnoses: Gingivitis Discharge - Sign-Out/Discharge Documenting (check all that apply): Patient Departure - Discharge - Discharge Plan Condition: Stable Disposition: HOME Prescriptions: Clindamycin Cap(NF) [Clindamycin Cap 300 mg Cap(NF)] 300 mg PO Q6H #30 cap Patient Education Materials: Gingivitis (ED) Referrals: Real Villalobos MD [Primary Care Provider] - Additional Instructions: Follow up with dentist within 5-7 days. Take Percocet one tablet every 6 hours as needed for pain. Return to ED with any new or worsening symptoms. - Attestation Statements Document Initiated by Scribe: Yes Documenting Scribe: Hector Kitchen Provider For Whom Scribe is Documenting (Include Credential): Leon Meade MD Scribe Attestation: IHector, scribed for Leon Meade MD on 09/26/18 at [id number]. Status of Scribe Document: Ready
[2018-09-26 22:45] VITALS: BP 141/79
== END 2018-09-26 22:44 | disposition home or self-care (01) ==
LOC: ED 21:29
DX: K05.10 Chronic gingivitis, plaque induced (principal); I10 Essential (primary) hypertension
CPT/HCPCS: 99282; A9270-GY